=== PATIENT | male | born 1965 | race Caucasian/White ===

== ENCOUNTER 2017-06-03 09:38 | Day surgery (SDC) | payer OTHER ==
[~2017-06-03] VITALS: Ht 180.3 cm; Wt 103.7 kg
[2017-06-03 09:55] VITALS: BP 131/94; PULSE 53; TEMP 97.8
[2017-06-03] MEDS ORDERED: ZANTAC 150MG T150 MG PO (12:25)
[2017-06-03 12:39] VITALS: BP 129/88; PULSE 62; TEMP 98.1
[2017-06-03 12:45] VITALS: BP 130/92; PULSE 62
[2017-06-03 13:00] VITALS: BP 126/84; PULSE 60
[2017-06-03 13:15] VITALS: BP 131/87; PULSE 57
== END 2017-06-03 13:33 | disposition home or self-care (01) ==
LOC: SDCO 09:38
DX: K29.30 Chronic superficial gastritis without bleeding (principal); K44.9 Diaphragmatic hernia without obstruction or gangrene; Z85.9 Personal history of malignant neoplasm, unspecified
CPT/HCPCS: OP; J2250; J3010; J7030